=== PATIENT | female | born 1940 | race Caucasian/White ===

== ENCOUNTER 2017-07-30 14:23 | Observation (INO) | payer MEDICARE ==
[2017-07-30] VITALS (8 sets, daily range): BP systolic 98–143; BP diastolic 52–74; PULSE 78–94; RESP 16–18; TEMP 98.4–99.3; O2SAT 92–100
[~2017-07-30] VITALS: Ht 162.6 cm; Wt 136.0 kg
[~2017-07-30 14:23] MED LIST: ADVA250A INH; ALEN70TA39 PO; CALCCHW25 PO; CENTCHW3 PO; LAMI25TA3 PO; LEVO75TA3 PO; LUTE20CA PO; OCUV PO; PRAV40TA2 PO; VENTAER INH
[2017-07-30] MEDS ORDERED: IOHEXOL 350 MG/ML 10 ML VIAL (for RAD DIAG) IVCONTRAST ONE (14:24)
[2017-07-30] MEDS ORDERED: SODIUM CHLORIDE 0.9% FLUSH 10 ML FLUSH IV FLUSH PRN ×2 (15:15→19:45)
[2017-07-30] MEDS ORDERED: SODIUM CHLOR 0.9% 1000 ML INJ 1,000 ML IV ONE ×2 (15:45→17:45)
--- NOTE | 2017-07-30 16:05 | PD ---
HPI . Epigastric pain Chief Complaint: Abdominal Pain Time Seen by Provider: 15:14 Travel History International Travel<30 days: No Contact w/Intl Traveler<30days: No Traveled to known affect area: No History of Present Illness HPI This patient presents with chief complaint of epigastric pain. Onset was this morning. She states that feels like someone has punched her in the stomach. She rates the pain 8/10. She states that the pain is associated with nausea. She denies any previous similar history. She denies any history of previous gallbladder issues. She has not noted any modifying factors. PFSH Past Medical History Asthma: Yes Autoimmune Disease: No Blood Disorders: No Depression: Yes Heart Rhythm Problems: No Cancer: Yes (SKIN) Cardiovascular Problems: Yes High Cholesterol: Yes Chest Pain: No Congestive Heart Failure: No COPD: Yes Cerebrovascular Accident: Yes (TIA ) Diminished Hearing: Yes Gastrointestinal Disorders: Yes Genitourinary: No Hypertension: No Musculoskeletal: Yes Neurologic: Yes ("SMALL BRAIN HEMORRHAGE, SEIZURES") Psychiatric: No Reproductive: No Respiratory: Yes Myocardial Infarction: No Sleep Apnea: No Thyroid Disease: Yes (HYPO) Tetanus Vaccination: Unknown Menopausal: Yes Tubal Ligation: Yes Past Surgical History Abdominal Surgery: No AICD: No Cardiac Surgery: Yes (GROWTH REMOVED FROM R CAROTID ARTERY) Ear Surgery: No Endocrine Surgery: No Eye Surgery: No Genitourinary Surgery: No Gynecologic Surgery: Yes (TUBES LIGATION ) Oral Surgery: No Pacemaker: No Thoracic Surgery: No Other Surgery: Yes (SKIN CA REMOVED FROM NOSE) Social History Alcohol Use: No Tobacco Use: No (quit in 1986) Substance Use: No Allergies-Medications (Allergen,Severity, Reaction): Coded Allergies: Sulfa (Sulfonamide Antibiotics) (Unverified Allergy, Severe, Shortness of Breath, 12/14/16) levofloxacin (Unverified Allergy, Severe, SOB/ CHEST PAIN, 12/14/16) Reported Meds & Prescriptions Reported Meds & Active Scripts Active Review of Systems Except as stated in HPI: all other systems reviewed are Neg General / Constitutional: No: Fever, Chills Cardiovascular: Positive: Chest Pain or Discomfort (Lower chest/epigastric pain ) Respiratory: No: Shortness of Breath Gastrointestinal: Positive: Nausea, Abdominal Pain Physical Exam Narrative GENERAL: Awake and alert and in no acute distress. SKIN: warm/dry. HEAD: Normocephalic. Atraumatic. EYES: Pupils equal and round. No scleral icterus. No injection or drainage. ENT: No nasal bleeding or discharge. Mucous membranes pink and moist. NECK: Trachea midline. Full range of motion without pain.. CARDIOVASCULAR: Regular rate and rhythm. Heart sounds normal. RESPIRATORY: No accessory muscle use. Coarse expiratory wheezing. Breath sounds equal bilaterally. GASTROINTESTINAL: Abdomen soft. Epigastric tenderness. No right upper quadrant tenderness. Bowel sounds present. Nondistended. MUSCULOSKELETAL: No obvious deformities. NEUROLOGICAL: Awake and alert. No obvious cranial nerve deficits. Motor grossly within normal limits. Normal speech. PSYCHIATRIC: Appropriate mood and affect; insight and judgment normal. Data Data Last Documented VS Vital Signs Date Time Temp Pulse Resp B/P (MAP) Pulse Ox O2 Delivery O2 Flow Rate FiO2 07/30/17 18:37 92 18 132/60 (84) 98 Room Air 07/30/17 14:30 98.4 Orders Orders Complete Blood Count With Diff (07/30/17 15:15) Comprehensive Metabolic Panel (07/30/17 15:15) Lipase (07/30/17 15:15) Urinalysis - C+S If Indicated (07/30/17 15:15) Iv Access Insert/Monitor (07/30/17 15:15) Ecg Monitoring (07/30/17 15:15) Oximetry (07/30/17 15:15) Sodium Chloride 0.9% Flush (Ns Flush) (07/30/17 15:15) Electrocardiogram (07/30/17 15:15) Cath For Specimen (07/30/17 15:15) Troponin I (07/30/17 15:15) Sodium Chlor 0.9% 1000 Ml Inj (Ns 1000 M (07/30/17 15:45) Ct Abd/Pel W Iv Contrast(Rout) (07/30/17 17:29) Morphine Inj (Morphine Inj) (07/30/17 17:45) Sodium Chlor 0.9% 1000 Ml Inj (Ns 1000 M (07/30/17 17:45) Iohexol 350 Inj (Omnipaque 350 Inj) (07/30/17 14:24) Hydromorphone Pf Inj (Dilaudid Pf Inj) (07/30/17 18:15) Admit Order (Ed Use Only) (07/30/17 18:45) Labs Laboratory Tests Test 07/30/17 15:30 07/30/17 17:04 White Blood Count 10.6 TH/MM3 Red Blood Count 5.57 MIL/MM3 Hemoglobin 16.8 GM/DL Hematocrit 49.2 % Mean Corpuscular Volume 88.3 FL Mean Corpuscular Hemoglobin 30.1 PG Mean Corpuscular Hemoglobin Concent 34.1 % Red Cell Distribution Width 14.9 % Platelet Count 230 TH/MM3 Mean Platelet Volume 8.2 FL Neutrophils (%) (Auto) 88.3 % Lymphocytes (%) (Auto) 5.7 % Monocytes (%) (Auto) 3.3 % Eosinophils (%) (Auto) 2.6 % Basophils (%) (Auto) 0.1 % Neutrophils # (Auto) 9.3 TH/MM3 Lymphocytes # (Auto) 0.6 TH/MM3 Monocytes # (Auto) 0.4 TH/MM3 Eosinophils # (Auto) 0.3 TH/MM3 Basophils # (Auto) 0.0 TH/MM3 CBC Comment DIFF FINAL Differential Comment Blood Urea Nitrogen 17 MG/DL Creatinine 0.69 MG/DL Random Glucose 139 MG/DL Total Protein 7.6 GM/DL Albumin 3.4 GM/DL Calcium Level 8.0 MG/DL Alkaline Phosphatase 82 U/L Aspartate Amino Transf (AST/SGOT) 29 U/L Alanine Aminotransferase (ALT/SGPT) 33 U/L Total Bilirubin 0.8 MG/DL Sodium Level 139 MEQ/L Potassium Level 4.4 MEQ/L Chloride Level 108 MEQ/L Carbon Dioxide Level 23.5 MEQ/L Anion Gap 8 MEQ/L Estimat Glomerular Filtration Rate 83 ML/MIN Troponin I LESS THAN 0.02 NG/ML Lipase 415 U/L Urine Color YELLOW Urine Turbidity CLEAR Urine pH 5.5 Urine Specific [place] 1.024 Urine Protein NEG mg/dL Urine Glucose (UA) NEG mg/dL Urine Ketones NEG mg/dL Urine Occult Blood NEG Urine Nitrite NEG Urine Bilirubin NEG Urine Urobilinogen LESS THAN 2.0 MG/DL Urine Leukocyte Esterase TRACE Urine RBC LESS THAN 1 /hpf Urine WBC 2 /hpf Urine Squamous Epithelial Cells 1 /hpf Urine Mucus FEW /lpf Microscopic Urinalysis Comment CULT NOT INDICATED MDM Medical Decision Making Medical Screen Exam Complete: Yes Emergency Medical Condition: Yes Medical Record Reviewed: Yes (PMH of COPD, , TIA, ICH, spinal stenesis, HL, hypothyroidism. ) Interpretation(s) EKG shows a sinus rhythm with no acute ischemic changes. Differential Diagnosis Differential diagnosis of abdominal pain includes but is not limited to gastritis, pancreatitis, hepatitis, gastroenteritis, constipation, urinary retention, peptic ulcer disease, diverticulitis or appendicitis Narrative Course This patient presents complaining with epigastric pain. Her pain is probably GI but I need to rule out a cardiac cause. CBC & BMP Diagram 07/30/17 15:30 Total Protein 7.6, Albumin 3.4, Calcium Level 8.0 L, Alkaline Phosphatase 82, Aspartate Amino Transf (AST/SGOT) 29, Alanine Aminotransferase (ALT/SGPT) 33, Total Bilirubin 0.8, Lipase 415 trop < 0.02 UA neg The patient states that she does not drink alcohol. She does not believe that she is has hyperlipidemia but it is noted on her problem list. She has not had a previous cholecystectomy. CT of her abdomen is pending for further evaluation. Physician Communication Physician Communication Dr. Mercado will admit the patient to observation for bowel rest and pain control Diagnosis Primary Impression: Epigastric pain Additional Impression: Pancreatitis Qualified Codes: K85.90 - Acute pancreatitis without necrosis or infection, unspecified Admitting Information Admitting Physician Requests: Observation Condition: Stable Kiarra Blakely MD Jul 30, 2017 16:05
[2017-07-30 16:19] LABS: AUTOMATED NEUTROPHIL # 9.3 TH/MM3 (1.8-7.7); BASOPHIL % 0.1 % (0.0-2.0); EOSINOPHIL # 0.3 TH/MM3 (0-0.4); EOSINOPHIL % 2.6 % (0.0-4.0); HEMATOCRIT 49.2 % (35.0-46.0); HEMOGLOBIN 16.8 GM/DL (11.6-15.3); LYMPH % 5.7 % (9.0-44.0); LYMPHOCYTE # 0.6 TH/MM3 (1.0-4.8); MEAN CELL VOLUME 88.3 FL (80.0-100.0); MEAN CORPUSCULAR HEMOGLOBIN 30.1 PG (27.0-34.0); MEAN CORPUSCULAR HGB CONC 34.1 % (32.0-36.0); MEAN PLATELET VOLUME 8.2 FL (7.0-11.0); MONO % 3.3 % (0.0-8.0); MONOCYTE # 0.4 TH/MM3 (0-0.9); NEUT % 88.3 % (16.0-70.0); PLATELET COUNT 230 TH/MM3 (150-450); RED BLOOD COUNT 5.57 MIL/MM3 (4.00-5.30); RED CELL DISTRIBUTION WIDTH 14.9 % (11.6-17.2); WHITE BLOOD COUNT 10.6 TH/MM3 (4.0-11.0)
[2017-07-30 16:53] LABS: ALKALINE PHOSPHATASE 82 U/L (45-117); ALT (GPT) 33 U/L (10-53); TOTAL BILIRUBIN ADULT 0.8 MG/DL (0.2-1.0); TOTAL PROTEIN 7.6 GM/DL (6.4-8.2); TROPONIN I LESS THAN 0.02 NG/ML (0.02-0.05)
[2017-07-30 16:56] LABS: ALBUMIN 3.4 GM/DL (3.4-5.0); AST (GOT) 29 U/L (15-37); BICARBONATE 23.5 MEQ/L (21.0-32.0); BLOOD UREA NITROGEN 17 MG/DL (7-18); CHLORIDE 108 MEQ/L (98-107); CREATININE 0.69 MG/DL (0.50-1.00); GLOMERULAR FILTRATION RATE 83 ML/MIN (>89); GLUCOSE,RANDOM 139 MG/DL (74-106); SODIUM (NA) 139 MEQ/L (136-145)
[2017-07-30 17:17] LABS: BILIRUBIN, URINE NEG (NEG); BLOOD, URINE NEG (NEG); GLUCOSE,URINE NEG (NEG); KETONE, URINE NEG (NEG); MUCUS URINE FEW /lpf (OCC); NITRITE,URINE NEG (NEG); PH, URINE 5.5 (5.0-8.5); SQUAMOUS EPITHELIAL CELL URINE 1 /hpf (0-5); URINE COLOR YELLOW (YELLW/STRAW); URINE LEUKOCYTE ESTERASE TRACE (NEG)
[2017-07-30] MEDS ORDERED: MORPHINE SULFATE 4 MG/ML INJ IV PUSH ONE (17:45)
[2017-07-30] MEDS ORDERED: HYDROmorphone HCL PF 2 MG/ML VIAL IV PUSH ONE (18:15)
--- NOTE | 2017-07-30 18:24 | RADRPT ---
EXAM DATE/TIME: 07/30/2017 18:00 [place] COMPARISON: No previous studies available for comparison. INDICATIONS : Upper abdominal pain and diarrhea. IV CONTRAST: 93 cc Omnipaque 350 (iohexol) IV ORAL CONTRAST: No oral contrast ingested. RADIATION DOSE: 16.79 CTDIvol (mGy) MEDICAL HISTORY : Cardiovascular disease. SURGICAL HISTORY : Tubal ligation. ENCOUNTER: Initial ACUITY: 1 day PAIN SCALE: 3/10 LOCATION: Bilateral upper quadrant TECHNIQUE: Volumetric scanning of the abdomen and pelvis was performed. Using automated exposure control and ad justment of the mA and/or kV according to patient size, radiation dose was kept as low as reasonably achievable to obtain optimal diagnostic quality images. DICOM format image data is available electro nically for review and comparison. FINDINGS: There is mild emphysema at the lung bases. Linear atelectasis or scarring in the right middle lobe ca lcified granuloma. Small hiatal hernia. No acute findings in the liver, spleen, right adrenal, kidneys or pancreas. There is an approximately 1.5 cm left adrenal nodule. No free air or free fluid. No bowel obstruction. There is severe sigmoid diverticulosis without diver ticulitis. CONCLUSION: 1. No acute findings. Colonic diverticulosis without diverticulitis. 2. Small hiatal hernia. Linear atelectasis or scarring in the right middle lobe. Rasheed Mendoza MD on July 30, 2017 at 18:16 Board Certified Radiologist. This report was verified electronically.
[2017-07-30] MEDS ORDERED: FOSA70TA PO (19:19)
[2017-07-30] MEDS ORDERED: LAMO25 PO ×2 (19:19)
[2017-07-30] MEDS ORDERED: PRAV40TA2 PO (19:19)
[2017-07-30] MEDS ORDERED: VENTAER INH (19:19)
[2017-07-30] MEDS ORDERED: MULTTAB67 PO (19:19)
[2017-07-30] MEDS ORDERED: LEVO75TA3 PO (19:19)
[2017-07-30] MEDS ORDERED: OCUVTAB4 PO (19:19)
[2017-07-30] MEDS ORDERED: VITA250T3 PO (19:19)
[2017-07-30] MEDS ORDERED: CALC1TAB37 PO (19:19)
[2017-07-30] MEDS ORDERED: ADVA45AE INH (19:19)
[2017-07-30] MEDS ORDERED: HYDROmorphone HCL PF 2 MG/ML VIAL IV PUSH PRN (19:45)
[2017-07-30] MEDS ORDERED: ONDANSETRON HCL 4 MG/2 ML VIAL IV PUSH PRN (19:45)
[2017-07-30] MEDS ORDERED: RESP: ALBUTEROL 2.5 MG/IPRATROPIUM 0.5 MG NEB (PRN) NEB (20:00)
[2017-07-30] MEDS: 1/2 NS + KCL 20 MEQ INJ 1,000 ML IV SCH (20:21)
[2017-07-30] MEDS: SODIUM CHLORIDE 0.9% FLUSH 10 ML FLUSH IV FLUSH SCH (21:00)
[2017-07-30] MEDS: lamoTRIgine 25 MG TAB PO SCH (22:37)
[2017-07-30] MEDS: BUDESONIDE-FORMOTEROL 160/4.5 MCG INHALER INH SCH (22:37)
[2017-07-31 01:22] VITALS: BP 102/53; PULSE 92; RESP 16; O2SAT 92
[2017-07-31 03:52] VITALS: BP 131/58; PULSE 77; RESP 20; TEMP 98.5; O2SAT 96
[2017-07-31] MEDS: LEVOTHYROXINE SODIUM 75 MCG TAB PO SCH (06:14)
[2017-07-31 08:15] VITALS: BP 104/61; PULSE 75; RESP 18; TEMP 98.7; O2SAT 95
[2017-07-31 08:32] LABS: AUTOMATED NEUTROPHIL # 4.8 TH/MM3 (1.8-7.7); BASOPHIL % 0.1 % (0.0-2.0); EOSINOPHIL # 0.2 TH/MM3 (0-0.4); EOSINOPHIL % 3.4 % (0.0-4.0); HEMATOCRIT 44.4 % (35.0-46.0); HEMOGLOBIN 15.2 GM/DL (11.6-15.3); LYMPH % 16.2 % (9.0-44.0); LYMPHOCYTE # 1.1 TH/MM3 (1.0-4.8); MEAN CORPUSCULAR HEMOGLOBIN 29.8 PG (27.0-34.0); MEAN CORPUSCULAR HGB CONC 34.2 % (32.0-36.0); MONO % 7.1 % (0.0-8.0); MONOCYTE # 0.5 TH/MM3 (0-0.9); NEUT % 73.2 % (16.0-70.0); PLATELET COUNT 224 TH/MM3 (150-450); RED CELL DISTRIBUTION WIDTH 14.6 % (11.6-17.2); WHITE BLOOD COUNT 6.5 TH/MM3 (4.0-11.0)
[2017-07-31] MEDS: SODIUM CHLORIDE 0.9% FLUSH 10 ML FLUSH IV FLUSH SCH ×2 (09:00→21:00)
[2017-07-31] MEDS: lamoTRIgine 25 MG TAB PO SCH ×2 (09:00→23:16)
[2017-07-31 09:02] LABS: ALBUMIN 3.3 GM/DL (3.4-5.0); BICARBONATE 21.1 MEQ/L (21.0-32.0); CALCIUM 7.4 MG/DL (8.5-10.1); CALCIUM-PROTEIN CORRECTED 7.5 MG/DL (8.5-10.1); CREATININE 0.66 MG/DL (0.50-1.00); TOTAL BILIRUBIN ADULT 0.6 MG/DL (0.2-1.0); TOTAL PROTEIN 6.9 GM/DL (6.4-8.2)
[2017-07-31] MEDS: BUDESONIDE-FORMOTEROL 160/4.5 MCG INHALER INH SCH ×2 (09:16→23:16)
[2017-07-31] MEDS: 1/2 NS + KCL 20 MEQ INJ 1,000 ML IV SCH ×2 (09:17→23:15)
--- NOTE | 2017-07-31 09:21 | HHI.HP ---
HPI Service [facility] Hospitalists Primary Care Physician Reji Jackson MD Admission Diagnosis epigastric pain, pancreatitis Chief Complaint: Abdominal pain Travel History International Travel<30 Days: No Contact w/Intl Traveler <30 Da: No Traveled to Known Affected Are: No History of Present Illness This is 76 old female patient with past medical history which includes COPD, diabetes mellitus, reported subarachnoid hemorrhage, seizure disorder, macular degeneration left eye, mild depression, hyperlipidemia, hypothyroidism, morbid obesity. Patient presented to the ER yesterday with complaints of epigastric pain. Onset was yesterday morning. She states that feels like someone has punched her in the stomach. She rates the pain 8/10. She states that the pain is associated with nausea. She denies any previous similar history. She denies any history of previous gallbladder issues. She has not noted any modifying factors. Patient denies shortness of breath chest pain fevers chills or diaphoresis. Patient initially had a minimally elevated lipase at 415 CT abdomen and pelvis reviewed and reveals no acute findings. Colonic diverticulosis without diverticulitis. Small hiatal hernia. Linear atelectasis or scarring in the right middle lobe Review of Systems Respiratory: DENIES: Cough, Sputum production, Shortness of breath Cardiovascular: DENIES: Chest pain, Dyspnea on Exertion, Lower Extremity Edema Gastrointestinal: COMPLAINS OF: Abdominal pain, Diarrhea, DENIES: Constipation , Nausea, Vomiting Psychiatric: DENIES: Anxiety, Confusion, Depression Past Family Social History Past Medical History COPD, diabetes mellitus, reported subarachnoid hemorrhage, seizure disorder, macular degeneration left eye, mild depression, hyperlipidemia, hypothyroidism, morbid obesity, Past Surgical History Tubal ligation in 1982 Colonoscopy EGD with biopsy Excision of lesion on nose Reported Medications Vitamin C (Ascorbic Acid) 250 Mg Tab 500 Mg PO DAILY Ventolin Hfa 18 GM Inh (Albuterol Sulfate) 90 Mcg/Act Aer 1-2 Puff INH Q4-6H PRN Preservision Areds (Multiple Vitamins W/ Minerals) 1 Tab 1 Tab PO DAILY Pravastatin 40 Mg Tab 40 Mg PO HS Multiple Vitamin 1 Tab 1 Tab PO DAILY Levothyroxine (Levothyroxine Sodium) 75 Mcg Tab 75 Mcg PO DAILY Lamictal (Lamotrigine) 25 Mg Tab 50 Mg PO HS Lamictal (Lamotrigine) 25 Mg Tab 25 Mg PO DAILY IN THE AM Calcium 600+D (Calcium Carbonate-Cholecalciferol) 600-800 Mg-Unit Tab 1 Tab PO DAILY Fosamax (Alendronate Sodium) 70 Mg Tab 70 Mg PO WEEKLY Advair Hfa 12 GM Inh (Fluticasone-Salmeterol 12 GM Inh) 45-21 Mcg/Act Aer 1 Puff INH Q12HR Allergies: Coded Allergies: Sulfa (Sulfonamide Antibiotics) (Unverified Allergy, Severe, Shortness of Breath, 12/14/16) levofloxacin (Unverified Allergy, Severe, SOB/ CHEST PAIN, 12/14/16) Family History Family history includes asthma, macular degeneration, cataracts Social History and retired Denies EtOH use or illicit drug use Former smoker quit in 1986 Physical Exam Vital Signs Vital Signs Date Time Temp Pulse Resp B/P (MAP) Pulse Ox O2 Delivery O2 Flow Rate FiO2 07/31/17 08:15 98.7 75 18 104/61 (75) 95 07/31/17 03:52 98.5 77 20 131/58 (82) 96 07/31/17 01:22 92 16 102/53 (69) 92 07/30/17 23:44 98.4 79 16 98/52 (67) 94 07/30/17 22:15 07/30/17 20:50 99.3 78 16 115/57 (76) 92 07/30/17 20:24 96 07/30/17 19:00 85 16 121/56 (77) 96 Room Air 07/30/17 18:37 92 18 132/60 (84) 98 Room Air 07/30/17 16:00 84 18 143/69 (93) 94 Room Air 07/30/17 15:18 18 94 Room Air 07/30/17 15:14 18 07/30/17 14:30 98.4 94 18 120/74 (89) 100 Physical Exam GENERAL: This is a well-nourished, well-developed patient, in no apparent distress. SKIN: No rashes, ecchymoses or lesions. Cool and dry. HEAD: Atraumatic. Normocephalic. No temporal or scalp tenderness. EYES: Pupils equal round and reactive. Extraocular motions intact. No scleral icterus. No injection or drainage. ENT: Nose without bleeding, purulent drainage or septal hematoma. Throat without erythema, tonsillar hypertrophy or exudate. Uvula midline. Airway patent. NECK: Trachea midline. No JVD or lymphadenopathy. Supple, nontender, no meningeal signs. CARDIOVASCULAR: Regular rate and rhythm without murmurs, gallops, or rubs. RESPIRATORY: Clear to auscultation. Breath sounds equal bilaterally. No wheezes , rales, or rhonchi. GASTROINTESTINAL: Abdomen soft, non-tender, nondistended. No hepato-splenomegaly , or palpable masses. No guarding. MUSCULOSKELETAL: Extremities without clubbing, cyanosis, or edema. No joint tenderness, effusion, or edema noted. No calf tenderness. Negative Homans sign bilaterally. NEUROLOGICAL: Awake and alert. Cranial nerves II through XII intact. Motor and sensory grossly within normal limits. Five out of 5 muscle strength in all muscle groups. Normal speech. Laboratory Laboratory Tests Test 07/30/17 15:30 07/30/17 17:04 07/31/17 08:01 White Blood Count 10.6 6.5 Red Blood Count 5.57 5.10 Hemoglobin 16.8 15.2 Hematocrit 49.2 44.4 Mean Corpuscular Volume 88.3 87.0 Mean Corpuscular Hemoglobin 30.1 29.8 Mean Corpuscular Hemoglobin Concent 34.1 34.2 Red Cell Distribution Width 14.9 14.6 Platelet Count 230 224 Mean Platelet Volume 8.2 8.0 Neutrophils (%) (Auto) 88.3 73.2 Lymphocytes (%) (Auto) 5.7 16.2 Monocytes (%) (Auto) 3.3 7.1 Eosinophils (%) (Auto) 2.6 3.4 Basophils (%) (Auto) 0.1 0.1 Neutrophils # (Auto) 9.3 4.8 Lymphocytes # (Auto) 0.6 1.1 Monocytes # (Auto) 0.4 0.5 Eosinophils # (Auto) 0.3 0.2 Basophils # (Auto) 0.0 0.0 CBC Comment DIFF FINAL DIFF FINAL Differential Comment Blood Urea Nitrogen 17 9 Creatinine 0.69 0.66 Random Glucose 139 135 Total Protein 7.6 6.9 Albumin 3.4 3.3 Calcium Level 8.0 7.4 Alkaline Phosphatase 82 75 Aspartate Amino Transf (AST/SGOT) 29 10 Alanine Aminotransferase (ALT/SGPT) 33 26 Total Bilirubin 0.8 0.6 Sodium Level 139 141 Potassium Level 4.4 3.8 Chloride Level 108 112 Carbon Dioxide Level 23.5 21.1 Anion Gap 8 8 Estimat Glomerular Filtration Rate 83 88 Troponin I LESS THAN 0.02 Triglycerides Level 174 Lipase 415 152 Urine Color YELLOW Urine Turbidity CLEAR Urine pH 5.5 Urine Specific [place] 1.024 Urine Protein NEG Urine Glucose (UA) NEG Urine Ketones NEG Urine Occult Blood NEG Urine Nitrite NEG Urine Bilirubin NEG Urine Urobilinogen LESS THAN 2.0 Urine Leukocyte Esterase TRACE Urine RBC LESS THAN 1 Urine WBC 2 Urine Squamous Epithelial Cells 1 Urine Mucus FEW Microscopic Urinalysis Comment CULT NOT INDICATED Protein Corrected Calcium 7.5 Result Diagram: 07/31/17 0801 07/31/17 0801 Imaging Last Impressions Abdomen/Pelvis CT 07/30/17 1729 Signed Impressions: Service Date/Time: Tuesday, July 30, 2017 18:00 - CONCLUSION: 1. No acute findings. Colonic diverticulosis without diverticulitis. 2. Small hiatal hernia. Linear atelectasis or scarring in the right middle lobe. MD Josesito Wise VTE Risk Assessment Caprini VTE Risk Assessment: No/Low Risk (score <= 1) Caprini Risk Assessment Model Point Value = 1 Point Value = 2 Point Value = 3 Point Value = 5 Age 41-60 Minor surgery BMI > 25 kg/m2 Swollen legs Varicose veins or History of unexplained or recurrent spontaneous Oral contraceptives or hormone replacement Sepsis (< 1 month) Serious lung disease, including pneumonia (< 1 month) Abnormal pulmonary function Acute myocardial infarction Congestive heart failure (< 1 month) History of inflammatory bowel disease Medical patient at bed rest Age 61-74 Arthroscopic surgery Major open surgery (> 45 min) Laparoscopic surgery (> 45 min) Malignancy Confined to bed (> 72 hours) Immobilizing plaster cast Central venous access Age >= 75 History of VTE Family history of VTE Factor V Leiden Prothrombin [id number] Lupus anticoagulant Anticardiolipin antibodies Elevated serum homocysteine Heparin-induced thrombocytopenia Other congenital or acquired thrombophilia Stroke (< 1 month) Elective arthroplasty Hip, pelvis, or leg fracture Acute spinal cord injury (< 1 month) Prophylaxis Regimen Total Risk Factor Score Risk Level Prophylaxis Regimen 0-1 Low Early ambulation 2 Moderate Order ONE of the following: *Sequential Compression Device (SCD) *Heparin 5000 units SQ BID 3-4 Higher Order ONE of the following medications: *Heparin 5000 units SQ TID *Enoxaparin/Lovenox 40 mg SQ daily (WT < 150 kg, CrCl > 30 mL/min) *Enoxaparin/Lovenox 30 mg SQ daily (WT < 150 kg, CrCl > 10-29 mL/min) *Enoxaparin/Lovenox 30 mg SQ BID (WT < 150 kg, CrCl > 30 mL/min) AND/OR *Sequential Compression Device (SCD) 5 or more Highest Order ONE of the following medications: *Heparin 5000 units SQ TID (Preferred with Epidurals) *Enoxaparin/Lovenox 40 mg SQ daily (WT < 150 kg, CrCl > 30 mL/min) *Enoxaparin/Lovenox 30 mg SQ daily (WT < 150 kg, CrCl > 10-29 mL/min) *Enoxaparin/Lovenox 30 mg SQ BID (WT < 150 kg, CrCl > 30 mL/min) AND *Sequential Compression Device (SCD) Assessment and Plan Problem List: (1) Pancreatitis ICD Codes: K85.90 - Acute pancreatitis without necrosis or infection, unspecified Status: Acute Plan: Patient presented to the emergency department with 8 out of 10 epigastric pain have to have a minimally elevated lipase at 415 Repeat lipase 07/[address] abdomen and pelvis reviewed and reveals no acute findings. Colonic diverticulosis without diverticulitis. Small hiatal hernia. Linear atelectasis or scarring in the right middle lobe initially nothing by mouth except medications IV fluids for hydration Dilaudid IV as needed for pain Supportive care diet advanced, patient had one episode of diarrhea after soft diet. Stool studies requested and pending continue to monitor through the night possible DC in AM if patient able to tolerate PO better DVT prophylaxis with SCDs (2) Epigastric pain ICD Codes: R10.13 - Epigastric pain Status: Resolved Plan: See above (3) Hypothyroid ICD Codes: E03.9 - Hypothyroid Status: Acute Plan: Continue patient's home levothyroxine 75 g by mouth daily (4) COPD (chronic obstructive pulmonary disease) ICD Codes: J44.9 - COPD (chronic obstructive pulmonary disease) Status: Acute Plan: Patient has a history of COPD does not appear to be in acute exacerbation continue patient's home Symbicort 2 puffs twice a day Duo nebs as needed for shortness of breath or wheezing Assessment and Plan Patient examined. Assessment and plan formulated with Rosalia Stackpole PA-C. I agree with the above. Per pt abdominal pain resolved. but, pt c/o no appetite. Pt had a few bites of tuna fish sandwhich and had watery diarrhea. Will obtain stool studies including C. Dif. Continue IVFs repeat CBC, BMP in AM. Anticipate d/c to home in next 1-2 days. Problem Qualifiers (1) Pancreatitis: Qualified Codes: K85.90 - Acute pancreatitis without necrosis or infection, unspecified Rosalia Ramires Jul 31, 2017 09:21 Andrew Mercado DO Jul 31, 2017 15:29
[2017-07-31] MEDS ORDERED: ACETAMINOPHEN 500 MG CPLT PO PRN (10:00)
--- NOTE | 2017-07-31 12:31 | EKG ---
Date Performed: 07/30/2017 Time Performed: 15:41:18 PTAGE: 76 years EKG: Sinus rhythm BORDERLINE LEFT AXIS DEVIATION BORDERLINE ECG PREVIOUS TRACING : 06/26/2014 08.48 Since the previous tracing, no significant change noted DOCTOR: Moses Mcclure Interpretating Date/Time 07/31/2017 12:29:49
[2017-07-31 14:28] VITALS: BP 116/66; PULSE 69; RESP 18; TEMP 97.7; O2SAT 95
[2017-07-31 17:19] VITALS: BP 121/60; PULSE 67; RESP 18; TEMP 98.1; O2SAT 94
[2017-07-31 20:00] VITALS: BP 129/65; PULSE 70; RESP 20; TEMP 97.9; O2SAT 96
[2017-08-01] VITALS: BP 124/66; PULSE 70; RESP 18; TEMP 97.6; O2SAT 95
[2017-08-01 04:00] VITALS: BP 116/70; PULSE 64; RESP 20; TEMP 97.9; O2SAT 95
[2017-08-01] MEDS: LEVOTHYROXINE SODIUM 75 MCG TAB PO SCH (06:25)
[2017-08-01 06:30] LABS: AUTOMATED NEUTROPHIL # 2.5 TH/MM3 (1.8-7.7); BASOPHIL % 0.3 % (0.0-2.0); EOSINOPHIL # 0.4 TH/MM3 (0-0.4); HEMATOCRIT 41.1 % (35.0-46.0); LYMPH % 29.7 % (9.0-44.0); LYMPHOCYTE # 1.5 TH/MM3 (1.0-4.8); MEAN CELL VOLUME 87.7 FL (80.0-100.0); MEAN CORPUSCULAR HEMOGLOBIN 29.9 PG (27.0-34.0); MEAN CORPUSCULAR HGB CONC 34.1 % (32.0-36.0); MEAN PLATELET VOLUME 7.9 FL (7.0-11.0); MONO % 10.2 % (0.0-8.0); MONOCYTE # 0.5 TH/MM3 (0-0.9); NEUT % 51.8 % (16.0-70.0); PLATELET COUNT 201 TH/MM3 (150-450); RED BLOOD COUNT 4.68 MIL/MM3 (4.00-5.30); RED CELL DISTRIBUTION WIDTH 14.9 % (11.6-17.2); WHITE BLOOD COUNT 4.9 TH/MM3 (4.0-11.0)
[2017-08-01 06:58] LABS: AST (GOT) 15 U/L (15-37); BICARBONATE 24.9 MEQ/L (21.0-32.0); BLOOD UREA NITROGEN 7 MG/DL (7-18); CALCIUM 7.6 MG/DL (8.5-10.1); CHLORIDE 114 MEQ/L (98-107); CREATININE 0.55 MG/DL (0.50-1.00); GLOMERULAR FILTRATION RATE 108 ML/MIN (>89); GLUCOSE,RANDOM 123 MG/DL (74-106); SODIUM (NA) 145 MEQ/L (136-145)
[2017-08-01 06:59] LABS: ALT (GPT) 25 U/L (10-53)
[2017-08-01 07:02] LABS: ALKALINE PHOSPHATASE 68 U/L (45-117); TOTAL BILIRUBIN ADULT 0.4 MG/DL (0.2-1.0); TOTAL PROTEIN 6.3 GM/DL (6.4-8.2)
--- NOTE | 2017-08-01 07:24 | HHI.PR ---
Subjective Remarks Patient am to tolerate PO no longer having abd pain no further diarrhea Objective Vitals Vital Signs Date Time Temp Pulse Resp B/P (MAP) Pulse Ox O2 Delivery O2 Flow Rate FiO2 08/01/17 04:00 97.9 64 20 116/70 (85) 95 08/01/17 00:00 97.6 70 18 124/66 (85) 95 07/31/17 20:00 97.9 70 20 129/65 (86) 96 07/31/17 17:19 98.1 67 18 121/60 (80) 94 07/31/17 14:28 97.7 69 18 116/66 (83) 95 07/31/17 12:19 20 07/31/17 08:15 98.7 75 18 104/61 (75) 95 Result Diagram: 08/01/17 0532 08/01/17 0532 Other Results Laboratory Tests Test 07/30/17 15:30 07/30/17 17:04 07/31/17 08:01 08/01/17 05:32 White Blood Count 10.6 TH/MM3 6.5 TH/MM3 4.9 TH/MM3 Red Blood Count 5.57 MIL/MM3 5.10 MIL/MM3 4.68 MIL/MM3 Hemoglobin 16.8 GM/DL 15.2 GM/DL 14.0 GM/DL Hematocrit 49.2 % 44.4 % 41.1 % Mean Corpuscular Volume 88.3 FL 87.0 FL 87.7 FL Mean Corpuscular Hemoglobin 30.1 PG 29.8 PG 29.9 PG Mean Corpuscular Hemoglobin Concent 34.1 % 34.2 % 34.1 % Red Cell Distribution Width 14.9 % 14.6 % 14.9 % Platelet Count 230 TH/MM3 224 TH/MM3 201 TH/MM3 Mean Platelet Volume 8.2 FL 8.0 FL 7.9 FL Neutrophils (%) (Auto) 88.3 % 73.2 % 51.8 % Lymphocytes (%) (Auto) 5.7 % 16.2 % 29.7 % Monocytes (%) (Auto) 3.3 % 7.1 % 10.2 % Eosinophils (%) (Auto) 2.6 % 3.4 % 8.0 % Basophils (%) (Auto) 0.1 % 0.1 % 0.3 % Neutrophils # (Auto) 9.3 TH/MM3 4.8 TH/MM3 2.5 TH/MM3 Lymphocytes # (Auto) 0.6 TH/MM3 1.1 TH/MM3 1.5 TH/MM3 Monocytes # (Auto) 0.4 TH/MM3 0.5 TH/MM3 0.5 TH/MM3 Eosinophils # (Auto) 0.3 TH/MM3 0.2 TH/MM3 0.4 TH/MM3 Basophils # (Auto) 0.0 TH/MM3 0.0 TH/MM3 0.0 TH/MM3 CBC Comment DIFF FINAL DIFF FINAL DIFF FINAL Differential Comment Blood Urea Nitrogen 17 MG/DL 9 MG/DL 7 MG/DL Creatinine 0.69 MG/DL 0.66 MG/DL 0.55 MG/DL Random Glucose 139 MG/DL 135 MG/DL 123 MG/DL Total Protein 7.6 GM/DL 6.9 GM/DL 6.3 GM/DL Albumin 3.4 GM/DL 3.3 GM/DL 3.0 GM/DL Calcium Level 8.0 MG/DL 7.4 MG/DL 7.6 MG/DL Alkaline Phosphatase 82 U/L 75 U/L 68 U/L Aspartate Amino Transf (AST/SGOT) 29 U/L 10 U/L 15 U/L Alanine Aminotransferase (ALT/SGPT) 33 U/L 26 U/L 25 U/L Total Bilirubin 0.8 MG/DL 0.6 MG/DL 0.4 MG/DL Sodium Level 139 MEQ/L 141 MEQ/L 145 MEQ/L Potassium Level 4.4 MEQ/L 3.8 MEQ/L 3.7 MEQ/L Chloride Level 108 MEQ/L 112 MEQ/L 114 MEQ/L Carbon Dioxide Level 23.5 MEQ/L 21.1 MEQ/L 24.9 MEQ/L Anion Gap 8 MEQ/L 8 MEQ/L 6 MEQ/L Estimat Glomerular Filtration Rate 83 ML/MIN 88 ML/MIN 108 ML/MIN Troponin I LESS THAN 0.02 NG/ML Triglycerides Level 174 MG/DL Lipase 415 U/L 152 U/L Urine Color YELLOW Urine Turbidity CLEAR Urine pH 5.5 Urine Specific [place] 1.024 Urine Protein NEG mg/dL Urine Glucose (UA) NEG mg/dL Urine Ketones NEG mg/dL Urine Occult Blood NEG Urine Nitrite NEG Urine Bilirubin NEG Urine Urobilinogen LESS THAN 2.0 MG/DL Urine Leukocyte Esterase TRACE Urine RBC LESS THAN 1 /hpf Urine WBC 2 /hpf Urine Squamous Epithelial Cells 1 /hpf Urine Mucus FEW /lpf Microscopic Urinalysis Comment CULT NOT INDICATED Protein Corrected Calcium 7.5 MG/DL Imaging Last Impressions Abdomen/Pelvis CT 07/30/17 1729 Signed Impressions: Service Date/Time: Tuesday, July 30, 2017 18:00 - CONCLUSION: 1. No acute findings. Colonic diverticulosis without diverticulitis. 2. Small hiatal hernia. Linear atelectasis or scarring in the right middle lobe. Rasheed Mendoza MD Objective Remarks GENERAL: This is a well-nourished, well-developed patient, in no apparent distress. CARDIOVASCULAR: Regular rate and rhythm without murmurs, gallops, or rubs. RESPIRATORY: Clear to auscultation. Breath sounds equal bilaterally. No wheezes , rales, or rhonchi. GASTROINTESTINAL: Abdomen soft, non-tender, nondistended. Normal active bowel sounds MUSCULOSKELETAL: Extremities without clubbing, cyanosis, or edema. NEURO: Alert & Oriented x4 to person, place, time, situation. Moves all ext x4 A/P Problem List: (1) Pancreatitis ICD Codes: K85.90 - Acute pancreatitis without necrosis or infection, unspecified Status: Acute Plan: Patient presented to the emergency department with 8 out of 10 epigastric pain have to have a minimally elevated lipase at 415 Repeat lipase 07/[address] abdomen and pelvis reviewed and reveals no acute findings. Colonic diverticulosis without diverticulitis. Small hiatal hernia. Linear atelectasis or scarring in the right middle lobe initially nothing by mouth except medications IV fluids for hydration Dilaudid IV as needed for pain Supportive care diet advanced, patient had one episode of diarrhea after soft diet. Stool studies requested and pending -> unable to obtain as patient is no longer having diarrhea DVT prophylaxis with SCDs Discussed case and plan with patient. Patient concerned because her brother secondary to pancreatic cancer. Dr Lafleur discussed case with patient's PCP Dr. East regarding hospitalization and possibility of ERCP as outpatient. Plan to DC home in stable condition on soft diet as tolerated patient to follow up with PCP in 1 week. (2) Epigastric pain ICD Codes: R10.13 - Epigastric pain Status: Resolved Plan: See above (3) Hypothyroid ICD Codes: E03.9 - Hypothyroid Status: Acute Plan: Continue patient's home levothyroxine 75 g by mouth daily (4) COPD (chronic obstructive pulmonary disease) ICD Codes: J44.9 - COPD (chronic obstructive pulmonary disease) Status: Acute Plan: Patient has a history of COPD does not appear to be in acute exacerbation continue patient's home Symbicort 2 puffs twice a day Duo nebs as needed for shortness of breath or wheezing Assessment and Plan Patient examined. Assessment and plan formulated with Rosalia Ramires PA-C. I agree with the above. pt has resolution of her epigastric pain radiographic and lab w/up only significant for mild elevation of lipase, now nml ?mild pancreatitis related to virus/medication/passed sludge potentially. Pt is nervous and concerned because her brother had pancreas ca in his 50s and . I spoke with pcp and he will f/u on these concerns and further outpt imaging/ testing/referral if needed can be pursued as indicated. She will f/u closely. no evidence of mass of pancreas on ct. Problem Qualifiers (1) Pancreatitis: Qualified Codes: K85.90 - Acute pancreatitis without necrosis or infection, unspecified Rosalia Ramires Aug 01, 2017 07:24 Sivakumar Lafleur MD Aug 01, 2017 13:02
[2017-08-01 08:12] VITALS: BP 117/71; PULSE 66; RESP 16; TEMP 97.6; O2SAT 95
[2017-08-01] MEDS: lamoTRIgine 25 MG TAB PO SCH (09:00)
[2017-08-01] MEDS: BUDESONIDE-FORMOTEROL 160/4.5 MCG INHALER INH SCH (09:42)
[2017-08-01] MEDS: SODIUM CHLORIDE 0.9% FLUSH 10 ML FLUSH IV FLUSH SCH (09:42)
[2017-08-01 11:04] VITALS: BP 123/58; PULSE 73; RESP 20; TEMP 98; O2SAT 98
== END 2017-08-01 12:50 | disposition home or self-care (01) ==
LOC: NEPC 14:23 → NEDA 18:47 → NEPGCP 20:45
PROVIDERS: ADMIT Hospitalist; ATTEND Hospitalist
DX: K85.90 Acute pancreatitis without necrosis or infection, unspecified (principal); R74.8 Abnormal levels of other serum enzymes; K44.9 Diaphragmatic hernia without obstruction or gangrene; K57.30 Diverticulosis of large intestine without perforation or abscess without bleeding; E03.9 Hypothyroidism, unspecified; J44.9 Chronic obstructive pulmonary disease, unspecified; F32.9 Major depressive disorder, single episode, unspecified; Z86.73 Personal history of transient ischemic attack (TIA), and cerebral infarction without residual deficits; R56.9 Unspecified convulsions; I61.9 Nontraumatic intracerebral hemorrhage, unspecified; Z98.51 Tubal ligation status; Z87.891 Personal history of nicotine dependence; R94.31 Abnormal electrocardiogram [ECG] [EKG]
CPT/HCPCS: 74177; 80053; 81001; 82330; 83690; 84478; 84484; 85025; 93005; 96361; 96365; 96366; 96375; 96376; 99285; G0378; J1170; J7030; Q9967